=== PATIENT | male | born 1995 ===

== ENCOUNTER 2017-11-07 02:54 | Emergency (ER) | payer SELFPAY ==
[2017-11-07 02:58] VITALS: BP 103/64
[2017-11-07 03:44] LABS: Bilirubin,Urine NEG (Negative); Blood,Urine NEG (Negative); Color,Urine Yellow (Yellow); Mucus,Urine 3+ /HPF
== END 2017-11-07 03:30 | disposition left against medical advice (07) ==
LOC: ED 02:54
DX: R30.0 Dysuria (principal); Z53.21 Procedure and treatment not carried out due to patient leaving prior to being seen by health care provider
CPT/HCPCS: 81001